=== PATIENT | male | born 1935 | race Caucasian/White ===

== ENCOUNTER → 2017-01-30 | Outpatient (CLI) | payer MEDICARE, MEDICAID ==
[~2017-01-30] MED LIST: BICA50TA PO; CHOL200024 PO; GABA100C8 PO; LISI40TA PO; LOVA10TA PO; SIMV20TA3 PO
== END | disposition home or self-care (01) ==
LOC: CFH 07:33
PROVIDERS: ATTEND Family Medicine
DX: Z13.820 Encounter for screening for osteoporosis (principal); M81.0 Age-related osteoporosis without current pathological fracture; M85.89 Other specified disorders of bone density and structure, multiple sites
CPT/HCPCS: 77080

== ENCOUNTER → 2018-10-16 | Outpatient (CLI) | payer MEDICARE, MEDICAID ==
[~2018-10-16] MED LIST changes: -BICA50TA PO; +BICA50TA5 PO; +GABA-826 PO; -GABA100C8 PO; +OMNIPAQUE 350 MG/ML, 100ML BOTTLE ONE
== END | disposition home or self-care (01) ==
LOC: RAD 11:35
PROVIDERS: ATTEND Urology
DX: C61 Malignant neoplasm of prostate (principal); C79.51 Secondary malignant neoplasm of bone; K44.9 Diaphragmatic hernia without obstruction or gangrene; R91.1 Solitary pulmonary nodule
CPT/HCPCS: 71260; 74177; Q9967

== ENCOUNTER → 2018-10-16 | Outpatient (CLI) | payer MEDICARE, MEDICAID ==
[~2018-10-16] MED LIST changes: -OMNIPAQUE 350 MG/ML, 100ML BOTTLE ONE
== END | disposition home or self-care (01) ==
LOC: RAD 12:16
PROVIDERS: ATTEND Urology
DX: C61 Malignant neoplasm of prostate (principal); C79.51 Secondary malignant neoplasm of bone; R53.83 Other fatigue; I10 Essential (primary) hypertension; Z86.19 Personal history of other infectious and parasitic diseases
CPT/HCPCS: 78306; A9503

== ENCOUNTER → 2020-06-29 | Outpatient (CLI) | payer MEDICARE, MEDICAID ==
[~2020-06-29] MED LIST changes: +OMNIPAQUE 350 MG/ML, 100ML BOTTLE ONE; +SIMV20TA19 PO; -SIMV20TA3 PO
[2020-06-29 10:46] LABS: CREATININE 0.99 mg/dL (0.7-1.3)
== END | disposition home or self-care (01) ==
LOC: RAD 09:52
PROVIDERS: ATTEND Urology
DX: C61 Malignant neoplasm of prostate (principal); R32 Unspecified urinary incontinence
CPT/HCPCS: 36415; 74177; 78306; 82565; A9503; Q9967

== ENCOUNTER → 2020-11-07 | Outpatient (CLI) | payer MEDICARE, MEDICAID ==
[~2020-11-07] MED LIST changes: -OMNIPAQUE 350 MG/ML, 100ML BOTTLE ONE
== END | disposition home or self-care (01) ==
LOC: RAD 11:38
PROVIDERS: ATTEND Radiology Radiation Oncology
DX: C79.51 Secondary malignant neoplasm of bone (principal)
CPT/HCPCS: 78306; A9503

== ENCOUNTER 2021-04-14 17:46 | Emergency (ER) | payer MEDICARE, MEDICAID ==
[~2021-04-14] VITALS: Ht 157.5 cm; Wt 67.0 kg
[~2021-04-14 17:46] MED LIST changes: -LISI40TA PO; +LISI40TA9 PO
[2021-04-14 18:46] LABS: BASOPHILS % (AUTO) 0 % (0-1); EOSINOPHILS % (AUTO) 2 % (1-7); LYMPHOCYTES % (AUTO) 9 % (22-44); MEAN CORPUSCULAR HEMOGLOBIN 30.8 pg (27.5-34.5); MEAN CORPUSCULAR HGB CONC 34.4 g/dL (33.2-36.2); MEAN PLATELET VOLUME 6.9 fL (7.4-10.4); MONOCYTES % (AUTO) 9 % (2-9); NEUTROPHILS % (AUTO) 81 % (42-75); PLATELET COUNT 288 x10^3/uL (130-400); RED BLOOD COUNT 3.95 x10^6/uL (4.38-5.82); RED CELL DISTRIBUTION WIDTH 14.7 % (9.4-14.8)
--- NOTE | 2021-04-14 18:55 | NUR ---
java j2ee lead: pt currently in US, when scan complete, pt to go to room 26
[2021-04-14 18:57] LABS: ALANINE AMINOTRANSFERASE 25 U/L (12-78); ALBUMIN 3.5 g/dL (3.4-5.0); ANION GAP 8 mmol/L (5-15); CHLORIDE 97 mmol/L (98-107); CREATININE 0.82 mg/dL (0.7-1.3)
--- NOTE | 2021-04-14 18:59 | NUR ---
TASK RN: PT NOT IN ROOM.
[2021-04-14 19:01] LABS: ALKALINE PHOSPHATASE 94 U/L (45-117); TOTAL PROTEIN 7.3 g/dL (6.4-8.2)
--- NOTE | 2021-04-14 19:51 | NUR ---
ALL RESULTS ARE BACK AT THIS TIME. CHART UP FOR RECHECK.
--- NOTE | 2021-04-14 20:58 | NUR ---
PT GOING TO CT.
[2021-04-14] MEDS ORDERED: OMNIPAQUE 350 MG/ML, 100ML BOTTLE ONE (21:00)
--- NOTE | 2021-04-14 22:04 | NUR ---
ALL RESULTS ARE BACK AT THIS TIME. CHART UP FOR RECHECK.
--- NOTE | 2021-04-14 22:05 | NUR ---
Note desiree in EDM - 04/14/21 at 2208 by [email or web address] PT HAD REQUESTED NUMBING OINTMENT PRIOR TO ACCESSING PORT, NUMBING GEL ADMIN BY TASK RN. HOSPITALIST SENIOR INVESTMENT ANALYST STUDENT AT BEDSIDE FOR ASSESSMENT ASKING TO FINISH PRIOR TO ACCESSING PORT. TASK RN AT BEDSIDE AT THIS TIME ACCESSING PORT WITH STERILE PROCEDURE. PRESIDENT ERGONOMIC CONSULTING WILL SPLINT RIGHT ANKLE AFTER STERILE PROCEDURE COMPLETE.
--- NOTE | 2021-04-14 22:24 | NUR ---
ERMD AT BEDSIDE TO UPDATE PT AND SON ON POC.
--- NOTE | 2021-04-14 22:45 | NUR ---
REPORT GIVEN TO MINGO PARKER. TRANSFER OF CARE AT THIS TIME.
--- NOTE | 2021-04-14 22:47 | NUR ---
received report from KEITH Huang
--- NOTE | 2021-04-14 23:19 | NUR ---
pt resting comfrotably in bed, denies needs at this time.
[2021-04-15 00:23] VITALS: BP 159/67
--- NOTE | 2021-04-15 00:23 | NUR ---
Patient/Caregiver given discharge instructions and they have confirmed that they understand the instructions. Patient ambulatory with steady gait.
== END 2021-04-15 00:25 | disposition home or self-care (01) ==
LOC: ED 23:45
DX: N13.30 Unspecified hydronephrosis (principal); C61 Malignant neoplasm of prostate; R60.0 Localized edema; I10 Essential (primary) hypertension
CPT/HCPCS: 36415; 71045; 74177; 80053; 83880; 85025; 93970; 99285; Q9967

== ENCOUNTER 2021-04-26 16:21 | Observation (INO) | payer MEDICAID, MEDICARE ==
[~2021-04-26] VITALS: Ht 160 cm; Wt 70.0 kg
[2021-04-26] MEDS ORDERED: SODIUM CHLORIDE FLUSH 10ML SYR IVF ONE (17:00)
[2021-04-26] MEDS ORDERED: calcium PO (17:13)
[2021-04-26 17:28] LABS: BASOPHILS % (AUTO) 0 % (0-1); EOSINOPHILS % (AUTO) 2 % (1-7); LYMPHOCYTES % (AUTO) 6 % (22-44); MEAN CORPUSCULAR HEMOGLOBIN 30.3 pg (27.5-34.5); MEAN PLATELET VOLUME 6.5 fL (7.4-10.4); MONOCYTES % (AUTO) 11 % (2-9); NEUTROPHILS % (AUTO) 81 % (42-75); PLATELET COUNT 355 x10^3/uL (130-400); RED BLOOD COUNT 3.71 x10^6/uL (4.38-5.82); RED CELL DISTRIBUTION WIDTH 14.4 % (9.4-14.8)
--- NOTE | 2021-04-26 17:30 | NUR ---
pt coming from [facility] today with us results of DVT in RLE. swelling, pain, erythema, pitting edema, and diminished sensation noted to RLE. pt a&o, resps even and unlabored, vss, all moitors attached, nsr, nadn.
[2021-04-26 17:40] LABS: ALANINE AMINOTRANSFERASE 20 U/L (12-78); ALBUMIN 3.1 g/dL (3.4-5.0); ANION GAP 7 mmol/L (5-15); CALCIUM 8.9 mg/dL (8.5-10.1); CHLORIDE 91 mmol/L (98-107); CREATININE 0.83 mg/dL (0.7-1.3)
[2021-04-26 17:42] LABS: ALKALINE PHOSPHATASE 154 U/L (45-117); BILIRUBIN,TOTAL 0.8 mg/dL (0.2-1.0); TOTAL PROTEIN 7.2 g/dL (6.4-8.2)
[2021-04-26 17:44] LABS: INTERNATIONAL NORMALIZED RATIO 1.04 (0.93-1.1); PROTHROMBIN TIME 11.1 Seconds (9.6-11.5)
[2021-04-26] MEDS ORDERED: ENOXAPARIN 60 MG/0.6 ML SQ ONE (18:00)
--- NOTE | 2021-04-26 18:11 | NUR ---
PIV placed, pt resting in bed, a&o, resps even and unlabored, vss, all monitors attached, nsr, nadn, call light in reach, warm blanket provided.
[2021-04-26] MEDS ORDERED: ALEN70TA77 PO (18:24)
[2021-04-26] MEDS ORDERED: TRAM50TA2 PO (18:24)
--- NOTE | 2021-04-26 18:24 | NUR ---
PT'S PHARMACY, ([facility] ON [address]) CALLED FOR MED REC PT/FAMILY COULD NOT RECALL HOME MEDS. MED REC COMPLETED AFTER SPEAKING WITH [facility] EMERGENCY DEPARTMENT TECHNICIAN.
--- NOTE | 2021-04-26 18:38 | NUR ---
preceptor RN note: lovenox requested from pharmacy.
--- NOTE | 2021-04-26 19:10 | NUR ---
bedside report given to alisha bhatia
[2021-04-26] MEDS ORDERED: POLYETHYLENE GLYCOL 17 GM PACKET PO PRN (19:30)
[2021-04-26] MEDS ORDERED: ACETAMINOPHEN 325 MG TABLET PO PRN (19:30)
[2021-04-26] MEDS ORDERED: KETOROLAC 30 MG/1 ML IV PRN (19:30)
[2021-04-26] MEDS ORDERED: ONDANSETRON 2MG/ML, 2ML IVPush PRN (19:30)
[2021-04-26] MEDS ORDERED: LABETALOL 5MG/ML, 20ML IVPush PRN (19:30)
[2021-04-26] MEDS ORDERED: MELATONIN 5 MG TABLET PO PRN (19:30)
[2021-04-26] MEDS ORDERED: ENOXAPARIN 60 MG/0.6 ML ONE (19:33)
[2021-04-26 20:26] VITALS: BP 163/73
[2021-04-27 02:02] VITALS: BP 137/69
[2021-04-27 05:22] LABS: CREATININE,URINE RANDOM 81.7 mg/dL
[2021-04-27 06:08] LABS: BASOPHILS % (AUTO) 1 % (0-1); EOSINOPHILS % (AUTO) 3 % (1-7); LYMPHOCYTES % (AUTO) 9 % (22-44); MEAN CORPUSCULAR HEMOGLOBIN 30.7 pg (27.5-34.5); MEAN CORPUSCULAR HGB CONC 34.3 g/dL (33.2-36.2); MEAN PLATELET VOLUME 6.5 fL (7.4-10.4); MONOCYTES % (AUTO) 12 % (2-9); NEUTROPHILS % (AUTO) 75 % (42-75); PLATELET COUNT 327 x10^3/uL (130-400); RED BLOOD COUNT 3.54 x10^6/uL (4.38-5.82); RED CELL DISTRIBUTION WIDTH 14.4 % (9.4-14.8)
[2021-04-27 06:18] LABS: ANION GAP 6 mmol/L (5-15); CALCIUM 8.8 mg/dL (8.5-10.1); CHLORIDE 93 mmol/L (98-107); CREATININE 0.86 mg/dL (0.7-1.3)
[2021-04-27 07:20] VITALS: BP 137/72
[2021-04-27] MEDS ORDERED: APIXABAN 5 MG TABLET PO SCH (09:00)
[2021-04-27] MEDS ORDERED: LISINOPRIL 40 MG TABLET PO SCH (09:00)
[2021-04-27] MEDS ORDERED: TRAM50TA2 PO (12:34)
[2021-04-27] MEDS ORDERED: APIX5TAB PO (12:34)
[2021-04-27 13:15] VITALS: BP 154/65
[2021-05-05] MEDS ORDERED: APIXABAN 5 MG TABLET PO SCH (09:00)
== END 2021-04-27 14:35 | disposition home or self-care (01) ==
LOC: ED 18:32 → 4NW 20:14 → DCLOUNGE 04-27 14:32
PROVIDERS: ADMIT Internal Medicine; ATTEND Family Medicine
DX: I82.401 Acute embolism and thrombosis of unspecified deep veins of right lower extremity (principal); I82.421 Acute embolism and thrombosis of right iliac vein; I82.431 Acute embolism and thrombosis of right popliteal vein; I82.411 Acute embolism and thrombosis of right femoral vein; I82.441 Acute embolism and thrombosis of right tibial vein; E87.1 Hypo-osmolality and hyponatremia; C61 Malignant neoplasm of prostate; C79.51 Secondary malignant neoplasm of bone; I10 Essential (primary) hypertension; E78.00 Pure hypercholesterolemia, unspecified; Z88.0 Allergy status to penicillin; Z79.899 Other long term (current) drug therapy
CPT/HCPCS: 36415; 80048; 80053; 82570; 83930; 83935; 84300; 85025; 85610; 85730; 96372; 99284; G0378; J1650

== ENCOUNTER 2021-06-21 16:54 | Inpatient (IN) | payer MEDICARE ==
[~2021-06-21] VITALS: Ht 165.1 cm; Wt 62.9 kg
[~2021-06-21 16:54] MED LIST changes: +ALEN70TA77 PO; +APIX5TAB PO; +TRAM50TA2 PO; +calcium PO
--- NOTE | 2021-06-21 17:28 | NUR ---
ASSISTED PT TO BEDPAN.
[2021-06-21] MEDS ORDERED: SODIUM CHLORIDE FLUSH 10ML SYR IVF ONE ×2 (17:30→19:30)
[2021-06-21] MEDS ORDERED: ONDANSETRON 2MG/ML, 2ML IVPush ONE (17:30)
--- NOTE | 2021-06-21 17:55 | NUR ---
BREAK RN: ASSIST PRIMARY RN WITH REMOVING PT FROM BEDPAN. PT NOW AT CT. Addendum: 06/21/21 at 1756 by PHONG PT DENIES NAUSEA AT THIS TIME.
[2021-06-21 17:58] LABS: INTERNATIONAL NORMALIZED RATIO 1.08 (0.93-1.1); PROTHROMBIN TIME 11.5 Seconds (9.6-11.5)
[2021-06-21 18:00] LABS: ALANINE AMINOTRANSFERASE 23 U/L (12-78); ALBUMIN 2.4 g/dL (3.4-5.0); ANION GAP 15 mmol/L (5-15); CALCIUM 9.8 mg/dL (8.5-10.1); CHLORIDE 90 mmol/L (98-107); CREATININE 8.57 mg/dL (0.7-1.3)
[2021-06-21 18:03] LABS: ALKALINE PHOSPHATASE 148 U/L (45-117); BILIRUBIN,TOTAL 0.6 mg/dL (0.2-1.0)
[2021-06-21 18:06] LABS: BASOPHILS % (AUTO) 0 % (0-1); EOSINOPHILS % (AUTO) 1 % (1-7); LYMPHOCYTES % (AUTO) 5 % (22-44); MEAN CORPUSCULAR HEMOGLOBIN 28.4 pg (27.5-34.5); MEAN CORPUSCULAR HGB CONC 34.3 g/dL (33.2-36.2); MEAN PLATELET VOLUME 6.6 fL (7.4-10.4); MONOCYTES % (AUTO) 9 % (2-9); NEUTROPHILS % (AUTO) 84 % (42-75); PLATELET COUNT 440 x10^3/uL (130-400); RED BLOOD COUNT 4.11 x10^6/uL (4.38-5.82); RED CELL DISTRIBUTION WIDTH 16.4 % (9.4-14.8)
--- NOTE | 2021-06-21 18:21 | NUR ---
BREAK RN: PT PROVIDED URINAL. SON AT BEDSIDE FOR ASSISTANCE.
[2021-06-21] MEDS ORDERED: SODIUM BICARB 8.4%, 50ML SYRINGE ONE (18:58)
[2021-06-21] MEDS ORDERED: CALCIUM CHLORIDE 10%, 10ML SYR IVPush ONE (19:00)
[2021-06-21] MEDS ORDERED: ACETAMINOPHEN 325 MG TABLET PO PRN (19:30)
[2021-06-21] MEDS ORDERED: SODIUM CHLORIDE 0.9% 1,000 ML IV ONE (19:30)
[2021-06-21] MEDS ORDERED: SODIUM BICARB 8.4%, 50ML SYRINGE IVPush ONE (19:30)
[2021-06-21] MEDS ORDERED: SODIUM CHLORIDE 0.9% 1,000ML IVBOLUS ONE (19:30)
[2021-06-21] MEDS ORDERED: SODIUM BICARBONATE 8.4% 150 MEQ in DEXTROSE 5% 1,000 ML IV SCH ×2 (19:30→21:00)
[2021-06-21] MEDS ORDERED: CALCIUM CHLORIDE 6.8 MEQ in SODIUM CHLORIDE 0.9% 100 ML IV ONE (19:30)
[2021-06-21] MEDS ORDERED: ONDANSETRON 2MG/ML, 2ML IVPush PRN (19:30)
[2021-06-21] MEDS ORDERED: SODIUM CHLORIDE 0.9% 1,000 ML IV SCH (19:30)
[2021-06-21] MEDS ORDERED: CALCIUM CHLORIDE 13.6 MEQ in SODIUM CHLORIDE 0.9% 100 ML IV ONE (19:30)
--- NOTE | 2021-06-21 19:55 | NUR ---
CLARIFIED WITH DR. CROWELL ORDER FOR SODIUM BICARB IV PUSH AND CONTINOUS INFUSION PER DR. CROWELL, ADMINISTERED BOTH ORDERED IN DEC.
[2021-06-21] MEDS ORDERED: ALEN70TA77 PO (20:26)
[2021-06-21] MEDS ORDERED: APIXABAN 2.5 MG TABLET PO SCH (21:00)
[2021-06-21 21:08] VITALS: BP 193/76
[2021-06-21 21:11] VITALS: BP 202/72
[2021-06-21] MEDS: hydrALAzine 20 MG/ML, 1ML IV PRN (22:45)
[2021-06-21 23:00] VITALS: BP 170/52
[2021-06-22 00:22] VITALS: BP 165/66
[2021-06-22] MEDS ORDERED: LORazepam 0.5MG TABLET PO ONE (00:30)
[2021-06-22] MEDS ORDERED: SODIUM ZIRCONIUM CYCLOSILICATE 10 GM PO ONE (00:30)
[2021-06-22 04:24] LABS: BASOPHILS % (AUTO) 0 % (0-1); EOSINOPHILS % (AUTO) 0 % (1-7); LYMPHOCYTES % (AUTO) 5 % (22-44); MEAN CORPUSCULAR HGB CONC 34.1 g/dL (33.2-36.2); MEAN PLATELET VOLUME 6.7 fL (7.4-10.4); MONOCYTES % (AUTO) 9 % (2-9); NEUTROPHILS % (AUTO) 86 % (42-75); PLATELET COUNT 378 x10^3/uL (130-400); RED BLOOD COUNT 3.59 x10^6/uL (4.38-5.82); RED CELL DISTRIBUTION WIDTH 16.5 % (9.4-14.8)
[2021-06-22 04:33] LABS: ANION GAP 12 mmol/L (5-15); CALCIUM 9.3 mg/dL (8.5-10.1); CHLORIDE 91 mmol/L (98-107)
[2021-06-22 04:36] LABS: ALANINE AMINOTRANSFERASE 18 U/L (12-78); ALKALINE PHOSPHATASE 126 U/L (45-117); BILIRUBIN,TOTAL 0.5 mg/dL (0.2-1.0); CREATININE 8.51 mg/dL (0.7-1.3); TOTAL PROTEIN 6.5 g/dL (6.4-8.2)
[2021-06-22 07:37] LABS: CHLORIDE,URINE RANDOM 79 mmol/L; POTASSIUM,URINE RANDOM 18 mmol/L; SODIUM,URINE RANDOM 98 mmol/L
[2021-06-22 08:13] LABS: MICROSCOPIC INDICATED
[2021-06-22 08:38] VITALS: BP 168/53
[2021-06-22] MEDS ORDERED: LABETALOL 5MG/ML, 20ML IVPush ONE (10:00)
[2021-06-22] MEDS: SODIUM ZIRCONIUM CYCLOSILICATE 5 GM PO SCH ×3 (10:23→20:09)
[2021-06-22 11:11] VITALS: BP 137/57
[2021-06-22] MEDS ORDERED: LIDOCAINE 1%, 10ML ONE (14:05)
[2021-06-22] MEDS ORDERED: NALOXONE 1 MG/ML, 2ML ONE (14:17)
[2021-06-22] MEDS ORDERED: FENTANYL PF 100 MCG/2ML ONE (14:17)
[2021-06-22] MEDS ORDERED: MIDAZOLAM 1 MG/ML, 5ML ONE (14:17)
[2021-06-22] MEDS ORDERED: FLUMAZENIL 0.1 MG/1 ML, 5ML ONE (14:17)
[2021-06-22] MEDS ORDERED: CEFAZOLIN PMX 1GM/50ML 0 ML ONE (14:36)
[2021-06-22 15:00] VITALS: BP 163/83
[2021-06-22] MEDS ORDERED: SODIUM CHLORIDE 0.9% 1,000 ML IV SCH (15:30)
[2021-06-22] MEDS ORDERED: VISIPAQUE 270 MG/ML, 50ML BOTTLE ONE (15:57)
[2021-06-22 16:26] VITALS: BP 152/68
[2021-06-22 17:42] LABS: ANION GAP 14 mmol/L (5-15); CHLORIDE 94 mmol/L (98-107); CREATININE 8.36 mg/dL (0.7-1.3)
[2021-06-22] MEDS ORDERED: SODIUM CHLORIDE 0.45% 1,000 ML IV SCH (18:00)
[2021-06-22] MEDS: SODIUM CHLORIDE 0.45% 1,000 ML IV SCH (18:21)
[2021-06-22 19:57] VITALS: BP 154/64
[2021-06-23 01:07] VITALS: BP 156/75
[2021-06-23 05:14] LABS: ALANINE AMINOTRANSFERASE 18 U/L (12-78); ALBUMIN 2.3 g/dL (3.4-5.0); ANION GAP 13 mmol/L (5-15); CALCIUM 9.4 mg/dL (8.5-10.1); CHLORIDE 97 mmol/L (98-107)
[2021-06-23 05:17] LABS: ALKALINE PHOSPHATASE 169 U/L (45-117); BILIRUBIN,TOTAL 0.6 mg/dL (0.2-1.0); CREATININE 5.75 mg/dL (0.7-1.3); TOTAL PROTEIN 7.2 g/dL (6.4-8.2)
[2021-06-23 06:56] VITALS: BP 148/71
[2021-06-23] MEDS: SODIUM CHLORIDE 0.45% 1,000 ML IV SCH ×2 (08:16→20:40)
[2021-06-23] MEDS ORDERED: APIXABAN 2.5 MG TABLET PO SCH (09:00)
[2021-06-23 12:25] LABS: ANION GAP 13 mmol/L (5-15); CHLORIDE 98 mmol/L (98-107)
[2021-06-23 12:27] LABS: CREATININE 4.16 mg/dL (0.7-1.3)
[2021-06-23 14:25] VITALS: BP 130/66
[2021-06-23 20:00] VITALS: BP 138/70
[2021-06-23] MEDS: APIXABAN 5 MG TABLET PO SCH (20:11)
[2021-06-24 02:00] VITALS: BP 172/79
[2021-06-24 03:59] LABS: MEAN CORPUSCULAR HGB CONC 33.2 g/dL (33.2-36.2); MEAN PLATELET VOLUME 6.9 fL (7.4-10.4); PLATELET COUNT 365 x10^3/uL (130-400); RED BLOOD COUNT 3.56 x10^6/uL (4.38-5.82); RED CELL DISTRIBUTION WIDTH 16.6 % (9.4-14.8)
[2021-06-24 04:07] LABS: ANION GAP 9 mmol/L (5-15); CALCIUM 8.4 mg/dL (8.5-10.1); CHLORIDE 100 mmol/L (98-107)
[2021-06-24 04:34] LABS: BANDS%(MANUAL) 4 % (0-7); EOS#(MANUAL) 0.23 x10^3/uL (0.0-0.4); EOS% (MANUAL) 3 % (1-7); MONOS#(MANUAL) 0.53 x10^3/uL (0.3-2.7); MONOS% (MANUAL) 7 % (2-9); MYELOCYTES# (MANUAL) 0.23 x10^3/uL (0-0); MYELOCYTES% (MANUAL) 3 % (0-0)
[2021-06-24 04:35] LABS: LYMPH#(MANUAL) 0.23 x10^3/uL (1-3.4); LYMPHS% (MANUAL) 3 % (22-44); SEG#(MANUAL) 6.08 x10^3/uL (1.8-6.8); SEGS% (MANUAL) 80 % (42-75)
[2021-06-24 04:36] LABS: <PLATELET ESTIMATE> ADEQUATE; ANISOCYTOSIS 1+; OVALOCYTES 1+; SMALL PLATELETS 1+
[2021-06-24] MEDS: hydrALAzine 20 MG/ML, 1ML IV PRN (05:52)
[2021-06-24] MEDS ORDERED: POTASSIUM CHLORIDE 20 MEQ TAB.ER.PRT PO ONE (07:00)
[2021-06-24 07:15] VITALS: BP 144/66
[2021-06-24] MEDS: APIXABAN 5 MG TABLET PO SCH ×2 (09:12→21:00)
[2021-06-24 14:36] VITALS: BP 137/68
[2021-06-24 16:15] LABS: ANION GAP 9 mmol/L (5-15); CALCIUM 9.1 mg/dL (8.5-10.1); CHLORIDE 99 mmol/L (98-107); CREATININE 1.78 mg/dL (0.7-1.3)
[2021-06-24 19:00] VITALS: BP 153/75
[2021-06-24 21:01] VITALS: BP 160/78
[2021-06-25 01:52] VITALS: BP 163/75
[2021-06-25 06:46] LABS: ANION GAP 9 mmol/L (5-15); CALCIUM 8.2 mg/dL (8.5-10.1); CHLORIDE 102 mmol/L (98-107); CREATININE 1.25 mg/dL (0.7-1.3)
[2021-06-25] MEDS ORDERED: POTASSIUM CHLORIDE 20 MEQ TAB.ER.PRT PO ONE (07:00)
[2021-06-25 08:07] VITALS: BP 137/61
[2021-06-25] MEDS: APIXABAN 5 MG TABLET PO SCH (09:31)
[2021-06-25 14:50] VITALS: BP 150/73
== END 2021-06-25 18:13 | disposition home health service (06) | DRG 698 ==
LOC: ED 18:54 → 4WST 19:28
PROVIDERS: ADMIT Internal Medicine; ATTEND Family Medicine
PROC: 0T9430Z Drainage of Left Kidney Pelvis with Drainage Device, Percutaneous Approach (ICD-10-PCS; principal; 2021-06-22)
PROC: BT13ZZZ Fluoroscopy of Bilateral Kidneys (ICD-10-PCS; 2021-06-22)
PROC: BT43ZZZ Ultrasonography of Bilateral Kidneys (ICD-10-PCS; 2021-06-22)
PROC: 0T9330Z Drainage of Right Kidney Pelvis with Drainage Device, Percutaneous Approach (ICD-10-PCS; 2021-06-22)
DX: N13.9 Obstructive and reflux uropathy, unspecified (principal); N17.0 Acute kidney failure with tubular necrosis; G93.49 Other encephalopathy; E87.2 Acidosis; E87.1 Hypo-osmolality and hyponatremia; N13.30 Unspecified hydronephrosis; D64.9 Anemia, unspecified; E87.5 Hyperkalemia; C61 Malignant neoplasm of prostate; C67.9 Malignant neoplasm of bladder, unspecified; E86.0 Dehydration; E87.6 Hypokalemia; R26.2 Difficulty in walking, not elsewhere classified; R60.0 Localized edema; I10 Essential (primary) hypertension; N40.0 Benign prostatic hyperplasia without lower urinary tract symptoms; R79.89 Other specified abnormal findings of blood chemistry; Z79.01 Long term (current) use of anticoagulants; Z80.42 Family history of malignant neoplasm of prostate; Z85.46 Personal history of malignant neoplasm of prostate; Z86.711 Personal history of pulmonary embolism; Z86.718 Personal history of other venous thrombosis and embolism; Z88.0 Allergy status to penicillin
CPT/HCPCS: 36415; 50432; 70450; 71045; 76770; 76942; 80048; 80053; 81001; 82140; 82436; 82550; 82570; 82962; 83605; 83690; 83735; 83930; 83935; 84100; 84132; 84133; 84300; 85014; 85018; 85025; 85610; 87086; 93005; 96374; 96375; 99291; C1894; G0378; J0690; J2250; J3010; J7070; Q9966; C1729; C1769; J0360; J2310; J7030